=== PATIENT | female | born 2000 | race Hispanic/Latino ===

== ENCOUNTER → 2022-09-06 | Day surgery (SDC) | payer OTHER ==
[~2022-09-06] MED LIST: FENTANYL CITRATE/PF 100MCG/2 ML INJ ONE; LANSOPRAZOLE30 MG PO; METOCLOPRAMIDE HCL 10 MG/2ML VIAL ONE; PROPOFOL IV EMULSION 10 MG/ML 20 ML VIAL ONE
[2022-09-06 13:45] VITALS: BP 120/70
== END | disposition home or self-care (01) ==
LOC: OR 10:53
PROVIDERS: ATTEND Internal Medicine Gastroenterology
DX: K29.70 Gastritis, unspecified, without bleeding (principal); K21.9 Gastro-esophageal reflux disease without esophagitis; K20.90 Esophagitis, unspecified without bleeding; Z71.3 Dietary counseling and surveillance; R05.3 Chronic cough; R63.4 Abnormal weight loss; Z71.89 Other specified counseling; Z68.27 Body mass index [BMI] 27.0-27.9, adult; Z86.16 Personal history of COVID-19
CPT/HCPCS: 43239; 81025; J2765; J3010